=== PATIENT | female | born 1995 | race Caucasian/White ===

== ENCOUNTER 2020-04-06 20:08 | Emergency (ER) | payer BC ==
[2020-04-06 20:34] VITALS: TEMP 98.6
[2020-04-06] MEDS ORDERED: SODIUM CHLORIDE 0.9% 1000ML 1,000 ML IVS PRN (21:19)
[2020-04-06] MEDS ORDERED: SODIUM CHLORIDE 0.9% (FLUSH) 10 ML SYG IV PRN (21:19)
[2020-04-06] MEDS ORDERED: MORPHINE SULFATE INJ 10 MG/ML VIAL IV ONE (21:20)
[2020-04-06] MEDS ORDERED: ONDANSETRON INJ 4 MG/2 ML VIAL IV ONE (21:20)
--- NOTE | 2020-04-06 21:53 | CT ---
CT ABDOMEN PELVIS WITH IV CONTRAST HISTORY: Lower abdominal pain. COMPARISON: None. TECHNIQUE: CT scan of the abdomen and pelvis was performed with IV contrast. This exam was performed according to our departmental dose-optimization program, which includes automated exposure control, adjustment of the mA and/or kV according to patient size and/or use of iterative reconstruction technique. FINDINGS: The lung bases are clear. No pleural or pericardial effusions. There is no hiatal hernia. The liver, spleen, pancreas, gallbladder, adrenal glands, and kidneys are normal. No hydronephrosis or urinary stones are seen. There is suggestion of a ruptured left ovarian cyst which measures 2.3 cm, with a moderate amount of pelvic free fluid some of which is hyperdense. The small large bowel are grossly unremarkable without evidence of obstruction or inflammation. No evidence of acute appendicitis. The stomach is also normal. There is no intraperitoneal free air or adenopathy. The bony structures are preserved. No abnormal body wall hernia is evident. The aorta and IVC are unremarkable. IMPRESSION: Findings suggestive of a ruptured left ovarian hemorrhagic cyst with moderate pelvic free fluid containing blood products. Consider pelvic ultrasound for complete evaluation, if clinically warranted. Electronically signed by: Ciro Mccloud MD 04/06/2020 9:51 PM CREW TRAINER
--- NOTE | 2020-04-06 22:16 | ED.PDOC ---
History of Present Illness - General Chief Complaint: Abdominal Pain Stated Complaint: painful urination, lower ab pain Time Seen by Provider: 04/06/20 21:19 Information Source: patient, RN notes reviewed, Vital Signs reviewed, family - fiance Exam Limitations: no limitations - History of Present Illness Initial Comments: Patient is a 24-year-old white female who presents with complaints of dysuria and lower abdominal pain. This pain started around 5:00 this evening. Prior to that time patient had no symptoms. The pain is constant but waxes and wanes in intensity. It is moderate to severe. There is no radiation of the pain. Nothing makes the pain better, it is worse during urination and if I palpate her abdomen. Abdominal Pain Onset Location: LUQ, suprapubic Pain Radiation: no radiation Quality: severe, burning, cramping Timing/Duration: 4-6 hours Improving Factors: nothing Worsening Factors: movement Associated Symptoms: other - Dysuria Review of Systems - Review of Systems Constitutional: States: no symptoms reported, see HPI. Denies: chills, fever, malaise, weakness EENTM: States: no symptoms reported. Denies: eye pain, blurred vision, double vision Respiratory: States: no symptoms reported. Denies: cough, short of breath, stridor, wheezing Cardiology: States: no symptoms reported. Denies: chest pain, edema, palpitations, syncope Gastrointestinal/Abdominal: States: see HPI, abdominal pain. Denies: constipation, diarrhea, nausea, vomiting Genitourinary: States: see HPI, dysuria. Denies: discharge, frequency, hematuria Musculoskeletal: States: no symptoms reported. Denies: back pain, joint pain, neck pain Skin: States: no symptoms reported. Denies: change in color, rash Neurological: Denies: headache, tingling, tremors, weakness Endocrine: States: no symptoms reported. Denies: increased hunger, increased thirst, increased urine Hematologic/Lymphatic: States: no symptoms reported. Denies: blood clots, easy bleeding All other Systems: Reviewed and Negative Past Medical History (General) - Patient Medical History Hx Seizures: No Hx Stroke: No Hx Dementia: No Hx Asthma: No Hx of COPD: No Hx Cardiac Disorders: No Hx Congestive Heart Failure: No Hx Pacemaker: No Hx Hypertension: No Hx Thyroid Disease: No Hx Diabetes: No Hx Gastroesophageal Reflux: No Hx Renal Disease: No Hx Cancer: No Hx of HIV: No Hx Hepatitis C: No Hx MRSA: No Surgical History: no surgical history - Vaccination History Hx Tetanus, Diphtheria Vaccination: No Hx Influenza Vaccination: No Family Medical History - Family History Mother Family History: Unknown Physical Exam - Physical Exam General Appearance: Alert, Anxious, Obvious distress, Well Developed, Well Groomed, Well Hydrated, Well Nourished Eyes, Ears, Nose, Throat Exam: PERRL/EOMI, normal ENT inspection, pharynx normal Neck: non-tender, full range of motion, supple, normal inspection Respiratory: chest non-tender, lungs clear, normal breath sounds, no respiratory distress, no accessory muscle use Cardiovascular/Chest: normal peripheral pulses, regular rate, rhythm, no edema, no gallop, no JVD, no murmur Peripheral Pulses: No deficit Gastrointestinal/Abdominal: normal bowel sounds, soft, tenderness - suprapubic and LUQ. 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 04/06/20 22:29 Patient is markedly improved after IV fluids, IV pain medicine and Ativan. Patient CT shows a ruptured ovarian cyst. She has free fluid in the pelvis. She is not so therefore unlikely to be an ectopic . Urine is clean and does not show any sign of UTI. Plan on discharge home with follow-up with PCP. Of discussed the plan of care with the patient and her fianc and they voiced understanding and agreement. Tone Marquez M.D. #[id number] - Results/Orders Results/Orders: 04/06/20 21:19 IV Care:Saline Lock per Protoc QSHIFT Sodium Chloride 0.9% (Flush) [Saline Flush Syringe] 10 ml IV PRN PRN Sodium Chloride 0.9% 1000ML [Ns 1000 ml] 1,000 ml IVS .QD 04/06/20 21:20 Hold Metformin x 48Hrs [id number] 04/06/20 21:30 EKG STAT Laboratory Results - last 24 hr 04/06/20 04/06/20 04/06/20 20:34 20:34 21:33 WBC 10.6 RBC 3.84 L Hgb 11.8 L Hct 33.5 L MCV 87.2 MCH 30.6 MCHC 35.1 RDW 12.7 Plt Count 246 MPV 7.9 Absolute Neuts (auto) 8.30 H Absolute Lymphs (auto) 1.20 Absolute Monos (auto) 1.00 H Absolute Eos (auto) 0.10 Absolute Basos (auto) 0.00 Neutrophils % 78.6 H Lymphocytes % 11.4 L Monocytes % 9.2 H Eosinophils % 0.6 L Basophils % 0.2 Sodium Potassium Chloride Carbon Dioxide Anion Gap BUN Creatinine BUN/Creatinine Ratio Random Glucose Serum Osmolality Calcium Total Bilirubin Direct Bilirubin Indirect Bilirubin AST ALT Alkaline Phosphatase Serum Total Protein Albumin Lipase Urine Color Yellow Urine Appearance Clear Urine pH 8.5 H Ur Specific [place] 1.020 Urine Protein Negative Urine Glucose (UA) Negative Urine Ketones Negative Urine Blood Negative Urine Nitrite Negative Urine Bilirubin Negative Urine Urobilinogen 0.2 Ur Leukocyte Esterase Negative Urine RBC 0 Urine WBC 0 Ur Epithelial Cells 0-1 Amorphous Sediment 2+ Urine Bacteria 0 Urine HCG, Qual Negative 04/06/20 21:33 WBC RBC Hgb Hct MCV MCH MCHC RDW Plt Count MPV Absolute Neuts (auto) Absolute Lymphs (auto) Absolute Monos (auto) Absolute Eos (auto) Absolute Basos (auto) Neutrophils % Lymphocytes % Monocytes % Eosinophils % Basophils % Sodium 136 Potassium 3.5 L Chloride 105 Carbon Dioxide 24 Anion Gap 10.5 L BUN 14 Creatinine 0.59 L BUN/Creatinine Ratio 23.7 H Random Glucose 158 H Serum Osmolality 275.7 Calcium 8.8 Total Bilirubin 0.7 Direct Bilirubin 0.1 Indirect Bilirubin 0.6 AST 17 ALT 14 Alkaline Phosphatase 35 L Serum Total Protein 6.5 Albumin 4.1 Lipase 25 Urine Color Urine Appearance Urine pH Ur Specific [place] Urine Protein Urine Glucose (UA) Urine Ketones Urine Blood Urine Nitrite Urine Bilirubin Urine Urobilinogen Ur Leukocyte Esterase Urine RBC Urine WBC Ur Epithelial Cells Amorphous Sediment Urine Bacteria Urine HCG, Qual EKG performed 06 April 2020 at 2155 hrs.: Sinus rhythm with short SD interval at 72 bpm with a SD interval of 102 ms, normal axis deviation, no ST or T wave changes concerning for ischemia, otherwise normal EKG. No comparison EKG available. CT ABDOMEN PELVIS WITH IV CONTRAST HISTORY: Lower abdominal pain. COMPARISON: None. TECHNIQUE: CT scan of the abdomen and pelvis was performed with IV contrast. This exam was performed according to our departmental dose- optimization program, which includes automated exposure control, adjustment of the mA and/or kV according to patient size and/or use of iterative reconstruction technique. FINDINGS: The lung bases are clear. No pleural or pericardial effusions. There is no hiatal hernia. The liver, spleen, pancreas, gallbladder, adrenal glands, and kidneys are normal. No hydronephrosis or urinary stones are seen. There is suggestion of a ruptured left ovarian cyst which measures 2.3 cm, with a moderate amount of pelvic free fluid some of which is hyperdense. The small large bowel are grossly unremarkable without evidence of obstruction or inflammation. No evidence of acute appendicitis. The stomach is also normal. There is no intraperitoneal free air or adenopathy. The bony structures are preserved. No abnormal body wall hernia is evident. The aorta and IVC are unremarkable. IMPRESSION: Findings suggestive of a ruptured left ovarian hemorrhagic cyst with moderate pelvic free fluid containing blood products. Consider pelvic ultrasound for complete evaluation, if clinically warranted. Electronically signed by: Ciro Mccloud MD 04/06/2020 9:51 PM MANAGER WOMEN Vital Signs 04/06/20 04/06/20 04/06/20 20:14 21:08 22:00 Temperature 98.6 F Pulse Rate [ 80 78 79 monitor] Respiratory 20 20 16 Rate Blood Pressure 102/87 98/62 102/87 [Left Arm] O2 Sat by Pulse 97 97 97 Oximetry Departure - Departure Clinical Impression: Ruptured cyst of left ovary Ovarian cyst Qualifiers: Laterality: left Qualified Code(s): N83.202 - Unspecified ovarian cyst, left side Abdominal pain Qualifiers: Abdominal location: lower abdomen, unspecified Qualified Code(s): R10.30 - Lower abdominal pain, unspecified Time of Disposition: 22:32 Disposition: Discharge to Home or Self Care Condition: Good Departure Forms: ED Discharge - Pt. Copy, Patient Portal Self Enrollment Instructions: DI for Abdominal Pain-Adult, Ovarian Cyst (DC) Diet: resume usual diet Activity: increase activity as tolerated Home Medications: Ambulatory Orders NK 04/06/20
[2020-04-06] MEDS ORDERED: ACETAMINOPHEN W/COD #3 TAB (ER Disp) PO ONE (22:32)
[2020-04-06 22:49] VITALS: BP 110/88; O2SAT 99
== END 2020-04-06 22:41 | disposition home or self-care (01) ==
LOC: ER 20:08
DX: N83.202 Unspecified ovarian cyst, left side (principal); R30.0 Dysuria
CPT/HCPCS: 36415; 74177; 80048; 80076; 81001; 81025; 83690; 85025; 93005; J2060; J2270; J2405; J7030